=== PATIENT | female | born 1950 | race Caucasian/White ===

== ENCOUNTER 2017-12-30 10:47 | Observation (INO) | payer MEDICAID, MEDICARE, OTHER ==
[2017-12-30 11:22] LABS: Hematocrit 45.3 % (37.0-47.0); Hemoglobin 15.9 gm/dL (12.5-16.0); Mean Cell Volume 99.6 fl (78-100); Mean Corpuscular Hemoglobin 34.9 pg (27-31); Mean Corpuscular Hgb Conc 35.1 g/dl (32-36); Neutrophil # 9.8 K/mm3 (1.3-6.0); Neutrophil % 81.4 % (42-75.0); Platelet Count 215 K/mm3 (150-450); Red Blood Count 4.55 M/mm3 (4.2-5.4); Red Cell Distribution Width 14.4 % (11.5-14.0)
[2017-12-30] MEDS ORDERED: THIAMINE HCL 100 MG in NORMAL SALINE 50 ML IV ONE (11:22)
--- NOTE | 2017-12-30 11:24 | ERNOTE ---
Neuro HPI ER Record Presenting Symptoms: facial droop, confusion Time Seen by Provider: 12/30/17 10:47 Source: family Exam Limitations: clinical condition Immunizations: IMMUNIZATION HX Immunizations Up to Date unknown at this time History of Influenza Vaccine More Information Required Hx Pneumococcal Vaccination More Information Required Allergies/Adverse Reactions: Allergies Allergy/AdvReac Type Severity Reaction Status Date / Time No Known Allergies Allergy Verified 12/30/17 10:59 Home Medications: HOME MEDICATIONS aspirin 325 mg tablet 325 mg PO DAILY 12/23/17 [Last Taken Unknown] rosuvastatin 10 mg tablet 10 mg PO DAILY 12/25/17 [Last Taken Unknown] - History of Present Illness Narrative: reports that patient woke up this morning confused and with a left facial droop. She had a stroke in July 2017 but recovered well from that. Her states that more recently she had some difficulty finding appropriate words, saw her PCP five days ago and had further testing ordered. She was doing well when she went to bed last night Patient is too confused to give a history Date (Duration): 12/30/17 Time (Timing): 09:00 Last Date Known Well: 12/29/17 Last Time Known Well: 21:30 Onset: upon waking, cannot confirm onset - Character of Deficits New weakness: Present: facial (lt) Baseline Cognition: Present: alert, oriented x 4 Baseline Gait: Present: walks w/o assistance Prior Treament: Reports: recently seen Review of Systems - Narrative Narrative: unable to obtaine Medical History (Last Reviewed 12/30/17 @ 12:27 by Christi Hdz MD) Hyperlipidemia (Chronic) Onset Date: ~07/31/17 CVA (cerebral vascular accident) (Resolved) Onset Date: ~07/31/17 Skin mass Left temporal Surgical History: Surgical History (Last Reviewed 12/30/17 @ 12:27 by Christi Hdz MD) No pertinent past surgical history Family History: Family History (Last Reviewed 12/30/17 @ 10:59 by Sonya Carvajal RN) Father Cancer lung ca Sister Cancer breast ca Social History: Preferred Language Venezuelan Smoking Status Current every day smoker (Last Updated 12/25/17 @ 17:31 by Deloris Leal DO) No Social History Section defined states that patient drinks two glasses of wine a day Physical Exam - Physical Exam General Appearance: Present: wd/wn, alert, moderate distress, anxious Head Exam: Present: normal inspection, no evidence of injury Eye Exam: Normal inspection: bilateral, PERRL: bilateral Ears, Nose, Throat: Present: normal pharynx Neck: Present: normal inspection, nontender, supple Respiratory: Present: no respiratory distress, no accessory muscle use, lungs clear, decreased breath sounds Cardiovascular/Chest: Present: tachycardia Gastrointestinal/Abdominal: Present: nontender, nondistended, soft Extremity Exam: Present: no edema Neurological Exam: Present: alert, disoriented to person, disoriented to time, disoriented to place, disoriented to situation, other - moves all extremities, no obvious droop (but drool on left cheek), patient doesnt follow comands, unable to complete stroke scale Skin Exam: Present: normal color, warm/dry [place] Coma Scale - Assess Eye Opening: Spontaneous Motor: Localizes to Pain Verbal: Inappropriate - Total Coma Scale Total: 12 ED Progress - Results and Orders Patient's Lab Results:: I have reviewed the patient's lab results. - Vital Signs Patient's Vital Signs:: I have reviewed the patient's vital signs. Vital Signs: Vital Signs 12/30/17 10:54 Pulse Rate 117 H Respiratory Rate 22 H O2 Sat by Pulse Oximetry 93 - EKG EKG: NSR, other - poor quality, no acute changes EKG read: Interp. by me - X-Ray X-Ray #1 X-Ray: chest - mild cardiomegaly, no acute findings Interpretation: Reviewed by me - CT/Ultrasound CT/Ultrasound Narrative: CT head: 1. No acute intracranial hemorrhage or new intracranial mass. 2. Additional comments, stable findings as above. - Progress/Reassessment Progress Note-Subjective: 12/30/17 11:24 patient still confused, no facial droop will give thiamin as patient has history of ETOH use 12/30/17 12:05 discussed results with family, offered admission 12/30/17 12:[address] Elvis pritchett to admit for observation for UTI, TIA, start rocephin Departure Clinical Impression: TIA (transient ischemic attack) Altered mental state Qualifiers: Altered mental status type: delirium Qualified Code(s): R41.0 - Disorientation, unspecified UTI (urinary tract infection) Qualifiers: Urinary tract infection type: acute cystitis Hematuria presence: without hematuria Qualified Code(s): N30.00 - Acute cystitis without hematuria - Departure Disposition: Still a patient Condition: Stable
[2017-12-30 11:32] LABS: Urine Bilirubin 1 mg/dl (NEGATIVE); Urine Blood 25 /ul (NEGATIVE); Urine Ketone 15 mg/dL (NEGATIVE); Urine Protein 30 mg/dL (NEGATIVE); Urine Specific Gravity >=1.030 SP.GR. (1.005-1.010); Urine Urobilinogen Normal (NORMAL)
[2017-12-30 11:32] LABS: Prothrombin Time (Patient) 12.8 Seconds (9.0-11.0)
[2017-12-30 11:33] LABS: ALT 15 U/L (19-67); AST 23 U/L (0-48); Albumin * 3.3 gm/dl (3.4-5.0); Alkaline Phosphatase * 71 U/L (50-170); Anion Gap 15.4 mmol/L (6.8-13.8); BUN/Creatinine Ratio 16.9 (9.0-21.6); Bilirubin, Total 1.1 mg/dL (0.0-1.1); Blood Urea Nitrogen 13 mg/dL (3-23); Calcium * 8.8 mg/dL (7.9-10.9); Carbon Dioxide 21.8 mmol/L (24-32.6); Chloride 98 mmol/L (97-106); Glucose * 102 mg/dL (70-110); Potassium 4.2 mmol/L (3.4-4.6); Sodium 131 mmol/L (132-142); Total Protein 7.9 gm/dL (6.2-8.2)
[2017-12-30 11:34] LABS: INR 1.28 INR (0.90-1.10); Partial Thrombolplastin Time 25.8 Seconds (24-32)
[2017-12-30 11:47] LABS: Urine Appearance Slightly Cloudy (CLEAR); Urine Color Yellow; Urine Nitrite Positive (NEGATIVE)
[2017-12-30 11:48] LABS: Urine Bacteria 4+; Urine RBC None Seen /hpf (0-5); Urine WBC 0-5 /hpf (0-5)
[2017-12-30 11:50] LABS: Cocaine Ur Negative (NEGATIVE); Urine Barbiturate Negative (NEGATIVE); Urine Benzodiazepines Negative (NEGATIVE); Urine Opiates Negative (NEGATIVE); Urine PCP Negative (NEGATIVE); Urine THC Negative (NEGATIVE)
[2017-12-30] MEDS ORDERED: NORMAL SALINE 1,000 ML IV ONE ×2 (12:33→14:19)
[2017-12-30] MEDS ORDERED: LORazepam 1 MG TABLET PO PRN (12:39)
[2017-12-30] MEDS ORDERED: LORazepam 2 MG/ML DISP.SYRIN IV PRN ×2 (13:39→14:24)
[2017-12-30] MEDS ORDERED: LORazepam 2 MG/ML DISP.SYRIN IV SCH (13:45)
--- NOTE | 2017-12-30 15:06 | HP ---
Chief Complaint - Chief Complaint Date of Service: 12/30/17 Time of Service: 14:24 Chief Complaint: confusion History of Present Illness: History obtained from patient's . She woke today around 9:00 am, and was "out of it." He couldn't understand what she was saying, the left side of her face drooped, and she was drooling. She wouldn't follow commands. Her left hand was curled. No recent medication changes. She had two glasses of wine yesterday. She normally has anywhere from 0-3 glasses of wine daily. She hasn't been complaining of any symptoms, including cough, shortness of breath, dysuria. No appetite changes, but her appetite has been poor. No diarrhea. She was agitated on arriving to the floor, and was given 1 mg IV ativan. Does not waken for my exam. Medical History (Last Reviewed 12/30/17 @ 12:27 by Christi Hdz MD) Hyperlipidemia (Chronic) Onset Date: ~07/31/17 CVA (cerebral vascular accident) (Resolved) Onset Date: ~07/31/17 Skin mass Left temporal Surgical History: Surgical History (Last Reviewed 12/30/17 @ 12:27 by Christi Hdz MD) No pertinent past surgical history Family History: Family History (Last Reviewed 12/30/17 @ 10:59 by Sonya Carvajal RN) Father Cancer lung ca Sister Cancer breast ca Social History: Patient Lives/Resources With Spouse Utilized Occupation retired Preferred Language Djiboutian Do you have any latter-day or No cultural preference? Smoking Status Current every day smoker Have you smoked in the past 12 Yes months Do you dip or chew tobacco No (Last Updated 12/25/17 @ 17:31 by Deloris Leal DO) No Social History Section defined Review Of Systems (GEN) - Review of Systems Generalized/Overall Review: Absent: Fever, Weight gain Respiratory: Absent: Cough, Shortness of Breath Cardiac: Absent: Edema Abdominal: Absent: Vomiting, Diarrhea Genitourinary: Absent: Urgency, Frequency Neurological: Present: Other - Has some confusion and word finding difficulty at baseline Immunizations: IMMUNIZATION HX Immunizations Up to Date unknown at this time History of Influenza Vaccine More Information Required Hx Pneumococcal Vaccination More Information Required Allergies/Adverse Reactions: Allergies Allergy/AdvReac Type Severity Reaction Status Date / Time No Known Allergies Allergy Verified 12/30/17 10:59 Home Medications: HOME MEDICATIONS aspirin 325 mg tablet 325 mg PO DAILY 12/23/17 [Last Taken Unknown] rosuvastatin 10 mg tablet 10 mg PO DAILY 12/25/17 [Last Taken Unknown] Exam - Exam Vital Signs: Vital Signs - Last Taken Temp 36.1 C 12/30/17 13:16 Pulse 102 H 12/30/17 14:11 Resp 16 12/30/17 13:16 BP 154/80 H 12/30/17 13:16 Pulse Ox 99 12/30/17 13:57 Constitutional: Present: No distress, Somnolent - Does not waken for exam, Looks Older than stated age Respiratory: Present: normal breath sounds, no respiratory distress, other - using 1 L O2 via NC Cardiovascular/Chest: Present: regular rate, rhythm, no edema Abdomen: Present: hypoactive - flight flinch with firm abdominal palpation. Absent: firm, distended Skin Exam: Present: other - excoriations over entire bilateral anterior surfaces of lower legs Diagnostic Studies: Abnormal Lab Results 12/30/17 12/30/17 12/30/17 Range/Units 10:55 10:55 10:55 WBC 12.0 H (4.0-10.5) K/mm3 MCH 34.9 H (27-31) pg RDW 14.4 H (11.5-14.0) % Immature Gran # (Auto) 0.04 H (0.000-0.0310) K/mm3 Neutrophils % 81.4 H (42-75.0) % Lymphocytes % 12.5 L (20-51) % Neutrophils # 9.8 H (1.3-6.0) K/mm3 ESR 17 H (0-15) mm/hr PT 12.8 H (9.0-11.0) Seconds INR (Anticoag Therapy) 1.28 H (0.90-1.10) INR Sodium (132-142) mmol/L Carbon Dioxide (24-32.6) mmol/L Anion Gap (6.8-13.8) mmol/L Lactic Acid, Venous (0.4-2.0) mmol/L ALT (19-67) U/L Albumin (3.4-5.0) gm/dl Procalcitonin (0.05-0.50) ng/mL Urine Protein (NEGATIVE) mg/dL Urine Blood (NEGATIVE) /ul Urine Nitrate (NEGATIVE) Urine Bilirubin (NEGATIVE) mg/dl Urine Bacteria (NONE) 12/30/17 12/30/17 12/30/17 Range/Units 10:55 10:55 10:55 WBC (4.0-10.5) K/mm3 MCH (27-31) pg RDW (11.5-14.0) % Immature Gran # (Auto) (0.000-0.0310) K/mm3 Neutrophils % (42-75.0) % Lymphocytes % (20-51) % Neutrophils # (1.3-6.0) K/mm3 ESR (0-15) mm/hr PT (9.0-11.0) Seconds INR (Anticoag Therapy) (0.90-1.10) INR Sodium 131 L (132-142) mmol/L Carbon Dioxide 21.8 L (24-32.6) mmol/L Anion Gap 15.4 H (6.8-13.8) mmol/L Lactic Acid, Venous 2.7 H* (0.4-2.0) mmol/L ALT 15 L (19-67) U/L Albumin 3.3 L (3.4-5.0) gm/dl Procalcitonin Less than 0.05 L (0.05-0.50) ng/mL Urine Protein (NEGATIVE) mg/dL Urine Blood (NEGATIVE) /ul Urine Nitrate (NEGATIVE) Urine Bilirubin (NEGATIVE) mg/dl Urine Bacteria (NONE) 12/30/17 12/30/17 Range/Units 11:15 13:44 WBC (4.0-10.5) K/mm3 MCH (27-31) pg RDW (11.5-14.0) % Immature Gran # (Auto) (0.000-0.0310) K/mm3 Neutrophils % (42-75.0) % Lymphocytes % (20-51) % Neutrophils # (1.3-6.0) K/mm3 ESR (0-15) mm/hr PT (9.0-11.0) Seconds INR (Anticoag Therapy) (0.90-1.10) INR Sodium (132-142) mmol/L Carbon Dioxide (24-32.6) mmol/L Anion Gap (6.8-13.8) mmol/L Lactic Acid, Venous 2.9 H* (0.4-2.0) mmol/L ALT (19-67) U/L Albumin (3.4-5.0) gm/dl Procalcitonin (0.05-0.50) ng/mL Urine Protein 30 H (NEGATIVE) mg/dL Urine Blood 25 H (NEGATIVE) /ul Urine Nitrate Positive H (NEGATIVE) Urine Bilirubin 1 H (NEGATIVE) mg/dl Urine Bacteria 4+ H (NONE) Laboratory Results WBC 12.0 K/mm3 (4.0-10.5) H 12/30/17 10:55 RBC 4.55 M/mm3 (4.2-5.4) 12/30/17 10:55 Hgb 15.9 gm/dL (12.5-16.0) 12/30/17 10:55 Hct 45.3 % (37.0-47.0) 12/30/17 10:55 MCV 99.6 fl (78-100) 12/30/17 10:55 MCH 34.9 pg (27-31) H 12/30/17 10:55 MCHC 35.1 g/dl (32-36) 12/30/17 10:55 RDW 14.4 % (11.5-14.0) H 12/30/17 10:55 Plt Count 215 K/mm3 (150-450) 12/30/17 10:55 MPV 12.0 fl (8-12.5) 12/30/17 10:55 Immature Gran % (Auto) 0.30 % (0.001-0.429) 12/30/17 10:55 Immature Gran # (Auto) 0.04 K/mm3 (0.000-0.0310) H 12/30/17 10:55 Neutrophils % 81.4 % (42-75.0) H 12/30/17 10:55 Lymphocytes % 12.5 % (20-51) L 12/30/17 10:55 Monocytes % 5.1 % (0.0-9) 12/30/17 10:55 Eosinophils % 0.0 % (0.0-3.0) 12/30/17 10:55 Basophils % 0.7 % (0.0-1.0) 12/30/17 10:55 Nucleated RBC % 0.0 k/mm3 (0-1) 12/30/17 10:55 Neutrophils # 9.8 K/mm3 (1.3-6.0) H 12/30/17 10:55 Lymphocytes # 1.50 k/mm3 (1.5-3.5) 12/30/17 10:55 Monocytes # 0.6 k/mm3 (0.0-1.0) 12/30/17 10:55 Eosinophils # 0.0 k/mm3 (0.0-0.7) 12/30/17 10:55 Absolute Basophils 0.1 k/mm3 (0.0-0.1) 12/30/17 10:55 ESR 17 mm/hr (0-15) H 12/30/17 10:55 PT 12.8 Seconds (9.0-11.0) H 12/30/17 10:55 INR (Anticoag Therapy) 1.28 INR (0.90-1.10) H 12/30/17 10:55 PTT (Marybeth) 25.8 Seconds (24-32) 12/30/17 10:55 Sodium 131 mmol/L (132-142) L 12/30/17 10:55 Plasma Sodium 131 mmol/L (130-142) 12/30/17 10:55 Potassium 4.2 mmol/L (3.4-4.6) 12/30/17 10:55 Chloride 98 mmol/L (97-106) 12/30/17 10:55 Carbon Dioxide 21.8 mmol/L (24-32.6) L 12/30/17 10:55 Anion Gap 15.4 mmol/L (6.8-13.8) H 12/30/17 10:55 BUN 13 mg/dL (3-23) 12/30/17 10:55 Creatinine 0.77 mg/dL (0.4-1.4) 12/30/17 10:55 Est GFR (Non-Af Amer) 80 mL/min (60-130) D 12/30/17 10:55 BUN/Creatinine Ratio 16.9 (9.0-21.6) 12/30/17 10:55 Random Glucose 102 mg/dL (70-110) 12/30/17 10:55 Lactic Acid, Venous 2.9 mmol/L (0.4-2.0) H* 12/30/17 13:44 Calcium 8.8 mg/dL (7.9-10.9) 12/30/17 10:55 Calcium Adj for Albumin 9.0 mg/dL (8.4-10.2) 12/30/17 10:55 Total Bilirubin 1.1 mg/dL (0.0-1.1) 12/30/17 10:55 AST 23 U/L (0-48) 12/30/17 10:55 ALT 15 U/L (19-67) L 12/30/17 10:55 Alkaline Phosphatase 71 U/L (50-170) 12/30/17 10:55 Total Protein 7.9 gm/dL (6.2-8.2) 12/30/17 10:55 Albumin 3.3 gm/dl (3.4-5.0) L 12/30/17 10:55 Procalcitonin Less than 0.05 ng/mL (0.05-0.50) L 12/30/17 10:55 Urine Color Yellow 12/30/17 11:15 Urine Appearance Slightly cloudy (CLEAR) 12/30/17 11:15 Urine pH 6.0 pH (5.0-7.0) 12/30/17 11:15 Ur Specific [place] >=1.030 SP.GR. (1.005-1.010) 12/30/17 11:15 Urine Protein 30 mg/dL (NEGATIVE) H 12/30/17 11:15 Urine Glucose (UA) Negative mg/dL (NEGATIVE) 12/30/17 11:15 Urine Ketones 15 mg/dL (NEGATIVE) 12/30/17 11:15 Urine Blood 25 /ul (NEGATIVE) H 12/30/17 11:15 Urine Nitrate Positive (NEGATIVE) H 12/30/17 11:15 Urine Bilirubin 1 mg/dl (NEGATIVE) H 12/30/17 11:15 Urine Ictotest Negative (NEGATIVE) 12/30/17 11:15 Prot Sulfosalicylic Acd 1+ mg/dL (0) 12/30/17 11:15 Urine Urobilinogen Normal EU/dl (NORMAL) 12/30/17 11:15 Ur Leukocyte Esterase Negative /ul (NEGATIVE) 12/30/17 11:15 Urine RBC None seen /hpf (0-5) 12/30/17 11:15 Urine WBC 0-5 /hpf (0-5) 12/30/17 11:15 Ur Epithelial Cells None seen /hpf (0-5) 12/30/17 11:15 Urine Bacteria 4+ (NONE) H 12/30/17 11:15 Urine Culture Comments Culture to follow 12/30/17 11:15 Urine Opiates Screen Negative (NEGATIVE) 12/30/17 11:15 Barbiturate Screen Negative (NEGATIVE) 12/30/17 11:15 Ur Phencyclidine Scrn Negative (NEGATIVE) 12/30/17 11:15 Urine Amphetamine Negative (NEGATIVE) 12/30/17 11:15 U Benzodiazepines Scrn Negative (NEGATIVE) 12/30/17 11:15 Urine Cocaine Screen Negative (NEGATIVE) 12/30/17 11:15 Urine Marijuana (THC) Negative (NEGATIVE) 12/30/17 11:15 Ethyl Alcohol Less than 3.0 mg/dL (0.0-10.0) 12/30/17 10:55 Assessment/Plan - Assessment/Plan (1) NSTEMI (non-ST elevated myocardial infarction) Assessment: After assessing the patient, several PVCs noticed on telemetry by her nurse. Repeat EKG and troponin ordered, and troponin was elevated at 3.022. Transfer process initiated to another facility with a laborer [facility]. Problem: Acute (2) Altered mental state Assessment: Ddx includes TIA, CVA, infection, dehydration, medication side effect, alcoholism. CT did not reveal active bleed. UA positive for leukocyte esterase, and she is being treated for UTI with Rocephin. Fluids running for dehydration, as her urine was extremely concentrated. She only takes aspirin and rosuvastatin, making medication side effect less likely. CDT pending to determine extent of alcohol use. Alcohol level negative on labs from the ED. Problem: Acute (3) Abnormal urinalysis Assessment: UA positive for nitrates and bacteria, but is very concentrated. Urine culture pending. Her reports she has not complained of urinary symptoms. Will treat with daily Rocephin until culture results. Problem: Acute (4) Lactic acidosis Assessment: Initial lactate 2.7, repeat 2.9. Ordered one liter bolus. Ddx includes dehydration, alcohol use, sepsis, ischemia. She does not waken for exam to properly assess for abdominal pain. Will continue serial abdominal exams as she wakens, and obtain CT angio of her abd/pel if lactate increases. Problem: Acute (5) History of CVA (cerebrovascular accident) Assessment: Patient reportedly was diagnosed with a CVA in July 2017, but unfortunately did not receive therapy after. Has residual problems with speech. Echo done in August showed possible PFO. She had her initial visit with me last week, and cardiology referral was placed, but had not yet taken place. Continue aspirin and rosuvastatin. She was strongly advised to stop smoking, and discussed alcohol cessation with her today as well. Problem: Acute
[2017-12-30] MEDS ORDERED: HEPARIN SODIUM,PORCINE/D5W 25,000 UNITS/500 ML BAG IV PRN (15:41)
[2017-12-30] MEDS ORDERED: HEPARIN SODIUM,PORCINE 5,000 UNITS/ML VIAL IV ONE (15:41)
--- NOTE | 2017-12-30 16:10 | PN ---
Progess Note - Interim Date: 12/30/17 Time: 16:06 Narrative: 12/30/17 16:06 Chart review shows the troponin that was ordered this afternoon shows that it resulted at 10:55. Verified with the lab that this was ran off labs done earlier this morning while patient was in the ED. This critical result was called at 1444, and transfer process initiated. 12/30/17 16:07
--- NOTE | 2017-12-30 16:24 | DS ---
Transfer Discharge Summary - Diagnosis(s)/Problems (1) NSTEMI (non-ST elevated myocardial infarction) Problem: Acute (2) Altered mental state Problem: Acute (3) Abnormal urinalysis Problem: Acute (4) Lactic acidosis Problem: Acute (5) History of CVA (cerebrovascular accident) Problem: Acute - Course Description of Stay: Patient with PMHx of previous CVA in July 2017 woke with confusion, left facial droop, and drooling. She was brought to the ED. Heat CT negative for bleed. She was unable to answer questions, and history provided by her and son. She had an elevated lactate of 2.7 and was hyponatremic with a sodium level of 131. UA showed a specific gravity of 1.03, positive nitrates, and positive bacteria. She was given a dose of Rocephin and a bolus of normal saline. She was agitated on arriving to the floor, and was given 1 mg ativan IV. No significant abnormalities with her vitals. Several PVCs were noted on telemetry, and troponin was ordered. This lab was ordered around 1400, and a critical value of 3.02 was called at 1444. The blood used to draw this lab was from a previous lab draw this morning. She left the facility before a repeat resulted. Heparin drip started. Her son adds additional medical history, letting us know that she drinks significantly daily, up to a bottle of liquor. She was accepted by [facility] and transferred for cardiology services. Procedures Performed: none - Results and Findings Results and Findings: Laboratory Results - last 24 hr 12/30/17 12/30/17 12/30/17 10:55 10:55 10:55 WBC 12.0 H RBC 4.55 Hgb 15.9 Hct 45.3 MCV 99.6 MCH 34.9 H MCHC 35.1 RDW 14.4 H Plt Count 215 MPV 12.0 Immature Gran % (Auto) 0.30 Immature Gran # (Auto) 0.04 H Neutrophils % 81.4 H Lymphocytes % 12.5 L Monocytes % 5.1 Eosinophils % 0.0 Basophils % 0.7 Nucleated RBC % 0.0 Neutrophils # 9.8 H Lymphocytes # 1.50 Monocytes # 0.6 Eosinophils # 0.0 Absolute Basophils 0.1 ESR 17 H PT 12.8 H INR (Anticoag Therapy) 1.28 H PTT (Marybeth) 25.8 Sodium Plasma Sodium Potassium Chloride Carbon Dioxide Anion Gap BUN Creatinine Est GFR (Non-Af Amer) BUN/Creatinine Ratio Random Glucose Lactic Acid, Venous Calcium Calcium Adj for Albumin Total Bilirubin AST ALT Alkaline Phosphatase Troponin I Total Protein Albumin Procalcitonin Urine Color Urine Appearance Urine pH Ur Specific [place] Urine Protein Urine Glucose (UA) Urine Ketones Urine Blood Urine Nitrate Urine Bilirubin Urine Ictotest Prot Sulfosalicylic Acd Urine Urobilinogen Ur Leukocyte Esterase Urine RBC Urine WBC Ur Epithelial Cells Urine Bacteria Urine Culture Comments Urine Opiates Screen Barbiturate Screen Ur Phencyclidine Scrn Urine Amphetamine U Benzodiazepines Scrn Urine Cocaine Screen Urine Marijuana (THC) Ethyl Alcohol 12/30/17 12/30/17 12/30/17 10:55 10:55 10:55 WBC RBC Hgb Hct MCV MCH MCHC RDW Plt Count MPV Immature Gran % (Auto) Immature Gran # (Auto) Neutrophils % Lymphocytes % Monocytes % Eosinophils % Basophils % Nucleated RBC % Neutrophils # Lymphocytes # Monocytes # Eosinophils # Absolute Basophils ESR PT INR (Anticoag Therapy) PTT (Marybeth) Sodium 131 L Plasma Sodium 131 Potassium 4.2 Chloride 98 Carbon Dioxide 21.8 L Anion Gap 15.4 H BUN 13 Creatinine 0.77 Est GFR (Non-Af Amer) 80 D BUN/Creatinine Ratio 16.9 Random Glucose 102 Lactic Acid, Venous 2.7 H* Calcium 8.8 Calcium Adj for Albumin 9.0 Total Bilirubin 1.1 AST 23 ALT 15 L Alkaline Phosphatase 71 Troponin I Total Protein 7.9 Albumin 3.3 L Procalcitonin Less than 0.05 L Urine Color Urine Appearance Urine pH Ur Specific [place] Urine Protein Urine Glucose (UA) Urine Ketones Urine Blood Urine Nitrate Urine Bilirubin Urine Ictotest Prot Sulfosalicylic Acd Urine Urobilinogen Ur Leukocyte Esterase Urine RBC Urine WBC Ur Epithelial Cells Urine Bacteria Urine Culture Comments Urine Opiates Screen Barbiturate Screen Ur Phencyclidine Scrn Urine Amphetamine U Benzodiazepines Scrn Urine Cocaine Screen Urine Marijuana (THC) Ethyl Alcohol Less than 3.0 12/30/17 12/30/17 12/30/17 10:55 11:15 11:15 WBC RBC Hgb Hct MCV MCH MCHC RDW Plt Count MPV Immature Gran % (Auto) Immature Gran # (Auto) Neutrophils % Lymphocytes % Monocytes % Eosinophils % Basophils % Nucleated RBC % Neutrophils # Lymphocytes # Monocytes # Eosinophils # Absolute Basophils ESR PT INR (Anticoag Therapy) PTT ([place]) Sodium Plasma Sodium Potassium Chloride Carbon Dioxide Anion Gap BUN Creatinine Est GFR (Non-Af Amer) BUN/Creatinine Ratio Random Glucose Lactic Acid, Venous Calcium Calcium Adj for Albumin Total Bilirubin AST ALT Alkaline Phosphatase Troponin I 3.022 H* Total Protein Albumin Procalcitonin Urine Color Yellow Urine Appearance Slightly cloudy Urine pH 6.0 Ur Specific [place] >=1.030 Urine Protein 30 H Urine Glucose (UA) Negative Urine Ketones 15 Urine Blood 25 H Urine Nitrate Positive H Urine Bilirubin 1 H Urine Ictotest Negative Prot Sulfosalicylic Acd 1+ Urine Urobilinogen Normal Ur Leukocyte Esterase Negative Urine RBC None seen Urine WBC 0-5 Ur Epithelial Cells None seen Urine Bacteria 4+ H Urine Culture Comments Culture to follow Urine Opiates Screen Negative Barbiturate Screen Negative Ur Phencyclidine Scrn Negative Urine Amphetamine Negative U Benzodiazepines Scrn Negative Urine Cocaine Screen Negative Urine Marijuana (THC) Negative Ethyl Alcohol 12/30/17 12/30/17 13:44 15:52 WBC RBC Hgb Hct MCV MCH MCHC RDW Plt Count MPV Immature Gran % (Auto) Immature Gran # (Auto) Neutrophils % Lymphocytes % Monocytes % Eosinophils % Basophils % Nucleated RBC % Neutrophils # Lymphocytes # Monocytes # Eosinophils # Absolute Basophils ESR PT INR (Anticoag Therapy) PTT ([place]) Sodium Plasma Sodium Potassium Chloride Carbon Dioxide Anion Gap BUN Creatinine Est GFR (Non-Af Amer) BUN/Creatinine Ratio Random Glucose Lactic Acid, Venous 2.9 H* 2.0 Calcium Calcium Adj for Albumin Total Bilirubin AST ALT Alkaline Phosphatase Troponin I Total Protein Albumin Procalcitonin Urine Color Urine Appearance Urine pH Ur Specific [place] Urine Protein Urine Glucose (UA) Urine Ketones Urine Blood Urine Nitrate Urine Bilirubin Urine Ictotest Prot Sulfosalicylic Acd Urine Urobilinogen Ur Leukocyte Esterase Urine RBC Urine WBC Ur Epithelial Cells Urine Bacteria Urine Culture Comments Urine Opiates Screen Barbiturate Screen Ur Phencyclidine Scrn Urine Amphetamine U Benzodiazepines Scrn Urine Cocaine Screen Urine Marijuana (THC) Ethyl Alcohol - Medications Medications: Active Medications Ceftriaxone Sodium 1,000 mg/ (Dextrose/Water) 100 mls @ 200 mls/hr IV Q24H [facility]; Protocol Stop: 01/29/18 12:31 Last Admin: 12/30/17 13:19 Dose: Not Given Sodium Chloride (Sodium Chloride 0.9%) 1,000 mls @ 125 mls/hr IV .Q8H ONE Stop: 12/30/17 20:32 Last Admin: 12/30/17 13:21 Dose: 125 mls/hr Heparin Sodium/Dextrose (Heparin 25,000 Units/D5w 500 Ml) 25,000 units in 500 mls @ 0 mls/hr IV TITR PRN; Protocol PRN Reason: Anticoagulation Stop: 01/29/18 15:42 Last Admin: 12/30/17 15:58 Dose: 12 units/hr, 0.24 mls/hr Lorazepam (Ativan) 0.5 mg IV Q6H PRN PRN Reason: Agitation Stop: 01/29/18 13:46 Last Admin: 12/30/17 16:07 Dose: 0.5 mg Discontinued Medications Heparin Sodium (Porcine) (Heparin Sodium) 3,600 units 60 units/kg (3600 units) IV ONCE ONE Stop: 12/30/17 15:42 Last Admin: 12/30/17 15:56 Dose: 3,600 units Thiamine HCl 100 mg/ Sodium (Chloride) 51 mls @ 100 mls/hr IV ONCE ONE Stop: 12/30/17 11:52 Last Infusion: 12/30/17 12:01 Dose: Infused Sodium Chloride (Sodium Chloride 0.9%) 1,000 mls @ 999 mls/hr IV .Q1H1M ONE Stop: 12/30/17 15:19 Last Infusion: 12/30/17 15:19 Dose: 125 mls/hr Lorazepam (Ativan) 1 mg IV Q6H PRN PRN Reason: Agitation Stop: 01/29/18 13:46 Last Admin: 12/30/17 13:43 Dose: 1 mg - Disposition Disposition: Short Term Hospital Inpatient Condition: Poor Discharge Date: 12/30/17 Discharge Time: 16:24
[2017-12-30 16:45] VITALS: BP 130/69
== END 2017-12-30 16:20 | disposition short-term general hospital (02) ==
LOC: MS 10:47 → ER 10:47 → MS 12:45
PROVIDERS: ADMIT Family Medicine; ATTEND Family Medicine
CPT/HCPCS: 36415; 70450; 71010; 71045; 80053; 80307; 80320; 81001; 82373; 83605; 84145; 84484; 85025; 85610; 85652; 85730; 87077; 87086; 87186; 93005; 96361; 96365; 96375; 96376; 99285; G0479; G0481